=== PATIENT | female | born 1970 | race Caucasian/White ===

== ENCOUNTER 2022-12-21 15:56 | Emergency (ER) | payer OTHER, SELFPAY ==
[2022-12-21 16:18] VITALS: BP 122/69; PULSE 67; RESP 16; TEMP 36.6; O2SAT 98
[2022-12-21 16:52] LABS: Basophils Absolute Auto 0.1 K/mm3 (0.0-0.1); Basophils Percent Auto 0.9 % (0.2-1.2); Eosinophils Absolute Auto 0.3 K/mm3 (0-0.3); Hematocrit 38.4 % (37.0-47.0); Hemoglobin 12.5 g/dL (12.0-15.0); Immature Granulocyte Absolute 0.01 K/mm3 (0.00-0.031); Immature Granulocyte Percent A 0.1 % (0-0.5); Lymphocytes Absolute Auto 1.79 K/mm3 (0.9-3.2); Lymphocytes Percent Auto 26.1 % (18.3-44.2); Mean Corpuscular HGB Conc 32.6 g/dl (32-36); Mean Corpuscular Hemoglobin 29.2 pg (26-34); Mean Corpuscular Volume 89.7 fl (80-100); Mean Platelet Volume 9.3 fl (7.4-10.4); Monocytes Absolute Auto 0.5 K/mm3 (0.1-0.6); Monocytes Percent Auto 7.6 % (2.6-8.5); Neutrophils Absolute Auto 4.1 K/mm3 (1.3-6.7); Neutrophils Percent Auto 60.3 % (45.5-73.1); Platelet Count Result 232 k/mm3 (150-375); Red Blood Count 4.28 M/mm3 (4.2-5.4); Red Cell Distribution Width 13.1 % (11.5-14.5); White Blood Count 6.9 K/mm3 (4.5-10.0)
[2022-12-21 17:22] LABS: Beta HCG Quantitative < 2.39 mIU/ML
--- NOTE | 2022-12-21 19:34 | ED.FEMALEGU ---
HPI - Female Genitourinary General Chief complaint: Vaginal Bleeding Stated complaint: VAG BLEEDING X11 DAYS Time Seen by Provider: 12/21/22 19:34 History of Present Illness HPI Narrative: 52-year-old female with 1 year of ongoing heavy periods, she has seen her OB several times, they have tried control pills, myfembree, and despite this still having heavy bleeding for the past week. She soaked through a tampon today so her OB told her to go into the ER. Related Data Allergies Allergy/AdvReac Type Severity Reaction Status Date / Time No Known Allergies Allergy Unknown Verified 04/24/06 15:37 NKDA Allergy Mild Uncoded 04/24/06 15:37 Review of Systems Review of Systems: CONST: No fever. HEENT: No sore throat C/V: No chest pain RESP: No cough GI: pelvic cramps : Heavy vaginal bleeding with clots M/S: No joint pain. SKIN: No rash. NEURO: [No headache or focal numbness or weakness] PSYCH: [No depression] Exam Narrative: EXAMINATION OF ORGAN SYSTEMS/BODY AREAS: Constitutional: Vital signs per nursing GENERAL:[No acute distress, non-toxic appearing.] HEAD: Normal with no signs of head trauma. EYES: EOMI, conjunctiva normal ENT: Hearing grossly intact LUNGS: Nonlabored breathing. HEART: [Regular rate and rhythm] ABD: [Soft], [nontender to palpation] : Some blood in vaginal blood with minimal active bleeding, no extensive hemorrhaging, no cervical motion tenderness or adnexal tenderness EXT: Normal range of motion SKIN: [No rashes or lesions.] NEURO: [Alert and oriented x 3. No gross focal sensory or strength deficits.] PSYCH: Normal affect Course Vital Signs Vital signs: Vital Signs Temperature 98 F 12/21/22 16:18 Pulse Rate 67 12/21/22 16:18 Respiratory Rate 16 12/21/22 16:18 Blood Pressure 122/69 12/21/22 16:18 Pulse Oximetry 98 12/21/22 16:18 Oxygen Delivery Room Air 12/21/22 16:18 Temperature 98 F 12/21/22 16:18 Pulse Rate 67 12/21/22 16:18 Respiratory Rate 16 12/21/22 16:18 Blood Pressure 122/69 12/21/22 16:18 Pulse Oximetry 98 07/13/23 16:18 Oxygen Delivery Room Air 12/21/22 16:18 MDM - Female Genitourinary MDM Narrative Medical decision making narrative: Patient presents with heavy uterine bleeding, despite trial of several hormonal control pills. She is complaining of some cramping. Patient well-appearing on exam, with small amount of active bleeding without extensive hemorrhage on exam, she is given small dose of Toradol for her pain, and I did call her OB Dr Sanchez to discuss the case. Per her recommendation, we will start her on TXA, as she continues taking her myfembree, with follow-up in the clinic and return to the ER for any worsening symptoms. Discussed with patient plan. Lab Data 12/21/22 16:46 Labs: Lab Results 12/21/22 Range/Units 16:46 WBC 6.9 (4.5-10.0) K/mm3 RBC 4.28 (4.2-5.4) M/mm3 Hgb 12.5 (12.0-15.0) g/dL Hct 38.4 (37.0-47.0) % MCV 89.7 (80-100) fl MCH 29.2 (26-34) pg MCHC 32.6 (32-36) g/dl RDW 13.1 (11.5-14.5) % Plt Count 232 (150-375) k/mm3 MPV 9.3 (7.4-10.4) fl Immature Gran % (Auto) 0.1 (0-0.5) % Neut % (Auto) 60.3 (45.5-73.1) % Lymph % (Auto) 26.1 (18.3-44.2) % [place] % (Auto) 7.6 (2.6-8.5) % Eos % (Auto) 5.0 H (0-4.4) % Baso % (Auto) 0.9 (0.2-1.2) % Lymph # (Auto) 1.79 (0.9-3.2) K/mm3 [place] # (Auto) 0.5 (0.1-0.6) K/mm3 Eos # (Auto) 0.3 (0-0.3) K/mm3 Baso # (Auto) 0.1 (0.0-0.1) K/mm3 Abs Immat Gran (auto) 0.01 (0.00-0.031) K/mm3 Absolute Neuts (auto) 4.1 (1.3-6.7) K/mm3 Absolute Nucleated RBC 0.0 (0.0-0.012) K/mm3 Nucleated RBC % 0.0 (0.0-0.2) % Beta HCG, Quant < 2.39 mIU/ML Blood Type B Negative Antibody Screen Negative Screen TNP Baby's Blood Type Not Reportable Baby's SEKOU Not Reportable Doses of RhIg Required 0 Discharge Plan Discharge Clinical Impression: Dy
[2022-12-21] MEDS: KETOROLAC 30 MG/ML VIAL (*BKC) IM (20:20)
[2022-12-21 20:46] VITALS: BP 126/80; PULSE 59; RESP 20; O2SAT 98
== END 2022-12-21 20:52 | disposition home or self-care (01) ==
LOC: ANHED 20:04
PROVIDERS: Emergency Medicine; Emergency Provider Emergency Medicine; PCP Family Medicine
DX: N93.8 Other specified abnormal uterine and vaginal bleeding (principal)
CPT/HCPCS: 36415; 84702; 85025; 85461; 86850; 86900; 86901; 96372; 99284; J1885